=== PATIENT | female | born 2000 | race Caucasian/White ===

== ENCOUNTER 2019-02-11 18:36 | Emergency (ER) | payer MEDICAID ==
[~2019-02-11] VITALS: Ht 167.6 cm; Wt 80.0 kg
[2019-02-11] MEDS ORDERED: LIDOCAINE HCL 2% 5ML SYRINGE IV ONE (22:45)
[2019-02-11] MEDS ORDERED: ACETAMINOPHEN 500MG TABLET PO ONE (23:00)
[2019-02-12] MEDS ORDERED: DIPHENHYDRAMINE 50MG CAPSULE PO ONE (00:15)
[2019-02-12] MEDS ORDERED: BACITRACIN ZINC OINT UDPKT TOP ONE (00:15)
[2019-02-12 00:55] VITALS: BP 134/74
== END 2019-02-12 00:57 | disposition home or self-care (01) ==
LOC: ER 18:45
DX: L60.0 Ingrowing nail (principal); L03.032 Cellulitis of left toe
CPT/HCPCS: 11730; 99284; J3490; Q0163